=== PATIENT | female | born 1955 | race Caucasian/White ===

== ENCOUNTER → 2018-01-14 | Outpatient (CLI) | payer MEDICARE ==
[~2018-01-14] MED LIST: AMLO2.5T PO; ASCO10007 PO; CHOL100018 PO; CYAN1TAB44 PO; ESTR-28 PO; ETOD400T3 PO; FERR140T PO; LANS30CA55 PO; LEVO137T2 PO; LORA-705 PO; MOME17N NASAL; NORT25CA3 PO; OXYB5TAB10 PO; PRAV20TA4 PO; TIZA4CAP8 PO; VIT1CAPS21 PO; VITA400C70 PO
== END | disposition home or self-care (01) ==
LOC: RAH 08:32
PROVIDERS: ATTEND Obstetrics & Gynecology
DX: Z12.31 Encounter for screening mammogram for malignant neoplasm of breast (principal)
CPT/HCPCS: 77067

== ENCOUNTER → 2018-08-02 | Outpatient (CLI) | payer MEDICARE ==
[~2018-08-02] MED LIST changes: -AMLO2.5T PO; +AMLO2.5T4 PO; -FERR140T PO; +FERR140T2 PO
== END | disposition home or self-care (01) ==
LOC: RAH 09:24
PROVIDERS: ATTEND Obstetrics & Gynecology
DX: N63.20 Unspecified lump in the left breast, unspecified quadrant (principal)
CPT/HCPCS: 76641; 77065

== ENCOUNTER → 2019-01-19 | Outpatient (CLI) | payer MEDICARE ==
[~2019-01-19] MED LIST changes: +OCUVITE SOFTGE1 EACH PO; -VIT1CAPS21 PO
== END | disposition home or self-care (01) ==
LOC: RAH 09:37
PROVIDERS: ATTEND Obstetrics & Gynecology
DX: N63.21 Unspecified lump in the left breast, upper outer quadrant (principal)
CPT/HCPCS: 76641; 77066

== ENCOUNTER → 2020-07-01 | Outpatient (CLI) | payer MEDICARE ==
[~2020-07-01] MED LIST changes: +ASCO100031 PO; -ASCO10007 PO; +LORA-699 PO; -LORA-705 PO; -OXYB5TAB10 PO; +OXYB5TAB15 PO; +VITA-164 PO; -VITA400C70 PO
== END | disposition home or self-care (01) ==
LOC: RAH 13:43
PROVIDERS: ATTEND Obstetrics & Gynecology
DX: Z12.31 Encounter for screening mammogram for malignant neoplasm of breast (principal)
CPT/HCPCS: 77067

== ENCOUNTER 2022-07-22 08:18 | Day surgery (SDC) | payer OTHER, MEDICARE ==
[2022-07-17 14:21] LABS: BASOPHILS % (AUTO) 0.4 % (0.0-5.0); EOSINOPHILS % (AUTO) 2.6 % (0.0-8.0); HEMATOCRIT 36.4 % (36-48); LYMPHOCYTES % (AUTO) 21.2 % (21.0-51.0); MEAN CORPUSCULAR HEMOGLOBIN 27.7 pg (27.0-33.0); MEAN CORPUSCULAR VOLUME 84.1 fL (79-99); MONOCYTES % (AUTO) 8.1 % (3.0-13.0); NEUTROPHILS % (AUTO) 67.3 % (40.0-77.0); PLATELET COUNT (AUTO) 314 K/uL (130-400); RED BLOOD CELL COUNT(AUTO) 4.33 MIL/uL (4.00-5.50); RED CELL DISTRIBUTION WIDTH 13.5 % (11.0-15.5); WHITE BLOOD COUNT (AUTO) 9.1 K/uL (4.8-10.8)
[2022-07-17 14:25] LABS: APPEARANCE,URINE CLEAR (CLEAR); BILIRUBIN,URINE NEGATIVE (NEGATIVE); COLOR,URINE COLORLESS (YELLOW); GLUCOSE, URINE (UA) NEGATIVE (NEGATIVE); KETONES,URINE NEGATIVE (NEGATIVE); LEUKOCYTE ESTERASE ,URINE NEGATIVE Leu/uL (NEGATIVE); NITRATE,URINE NEGATIVE (NEGATIVE); PROTEIN,URINE NEGATIVE (NEGATIVE); UROBILINOGEN,URINE 0.2 mg/dL (0.2-1.0)
[2022-07-17 14:32] LABS: POTASSIUM 4.4 mmol/L (3.5-5.1)
[2022-07-17 14:34] LABS: RBC,URINE 0-1 /HPF (0-1); SQUAMOUS EPITHELIAL CELL,UR RARE /HPF (0-2)
[2022-07-17 14:37] LABS: INR 0.96 (0.85-1.15); PARTIAL THROMBOPLASTIN TIME 28.8 SEC (26.3-35.5); PROTHROMBIN TIME 10.4 SEC (9.6-11.6)
[2022-07-17 14:52] LABS: B-TYPE NATRIURETIC PEPTIDE 103 pg/mL (0-100)
[2022-07-21 11:37] VITALS: BP 122/64
[~2022-07-22] VITALS: Ht 162.6 cm; Wt 92.5 kg
[2022-07-22] VITALS (7 sets, daily range): BP systolic 143–163; BP diastolic 56–89
[~2022-07-22 08:18] MED LIST changes: +AEC81 PO; -AMLO2.5T4 PO; -ASCO100031 PO; +ASCO500T10 PO; +ATOR10 PO; +BIOT10004 PO; +CELE-84 PO; -CHOL100018 PO; +CLOP75TA32 PO; -CYAN1TAB44 PO; -ESTR-28 PO; -ETOD400T3 PO; -FERR140T2 PO; +FLUT16H NASAL; -LANS30CA55 PO; -LEVO137T2 PO; +LEVO150T11 PO; +LOSA50TA64 PO; +MAGN100T5 PO; +METO-391 PO; -MOME17N NASAL; +MV-M1TAB45 PO; +NITR0.4T50 SL; +NORT50CA PO; +OMEG-89 PO; -OXYB5TAB15 PO; -PRAV20TA4 PO; +UBID100C10 PO; -VITA-164 PO; +VITA-395 PO; +ZINC220T4 PO
[2022-07-22] MEDS ORDERED: 0.9%NACL 1000ML 1,000 ML IV ONE (08:55)
[2022-07-22] MEDS ORDERED: LIDOCAINE HCL 1% 20 ML VIAL ONE (15:02)
[2022-07-22] MEDS ORDERED: HEPARIN 10,000 UNIT/10ML (1,000 UNIT/ML) VIAL ONE (15:02)
[2022-07-22] MEDS ORDERED: IOHEXOL-350 50ML VIAL IV ONE (15:02)
[2022-07-22] MEDS ORDERED: NITROGLYCERIN 50MG VIAL ONE (15:02)
[2022-07-22] MEDS ORDERED: IOHEXOL 350 MG/ML 100ML INFUS..BTL IV ONE (15:02)
[2022-07-22] MEDS ORDERED: FENTANYL CITRATE PF 50 MCG/1 ML 2ML VIAL ONE (15:03)
[2022-07-22] MEDS ORDERED: MIDAZOLAM HCL 1 MG/ML 2ML VIAL ONE (15:03)
[2022-07-22] MEDS ORDERED: 0.9%NACL 1000ML 1,000 ML IV SCH (17:00)
== END 2022-07-22 21:40 | disposition home or self-care (01) ==
LOC: DAH 08:18 → EDSTATUS 13:00 → DAH 21:40
PROVIDERS: ATTEND Internal Medicine Cardiovascular Disease
DX: I25.118 Atherosclerotic heart disease of native coronary artery with other forms of angina pectoris (principal); I27.20 Pulmonary hypertension, unspecified; I44.7 Left bundle-branch block, unspecified; T73.3XXA Exhaustion due to excessive exertion, initial encounter; I10 Essential (primary) hypertension; E78.5 Hyperlipidemia, unspecified; E03.9 Hypothyroidism, unspecified; M19.90 Unspecified osteoarthritis, unspecified site; Z79.01 Long term (current) use of anticoagulants; Z79.82 Long term (current) use of aspirin; Z79.899 Other long term (current) drug therapy; Z98.890 Other specified postprocedural states; Z79.890 Hormone replacement therapy; Z90.89 Acquired absence of other organs; Z82.49 Family history of ischemic heart disease and other diseases of the circulatory system; Z80.9 Family history of malignant neoplasm, unspecified; Z88.6 Allergy status to analgesic agent; Z88.8 Allergy status to other drugs, medicaments and biological substances; Z91.040 Latex allergy status; Y83.8 Other surgical procedures as the cause of abnormal reaction of the patient, or of later complication, without mention of misadventure at the time of the procedure
CPT/HCPCS: 80048; 83880; 85025; 85610; 85730; 81001; 36415; 71045; 93005; 93460; C1894 ×3; C1760; Q9965; J3010; J7030; J2250; J1644; J3490; Q9967 ×2; A4215; A4222; A4221; A4663; A4216; A4606; A4223 ×3; 99156; 99157

== ENCOUNTER → 2022-10-20 | Outpatient (CLI) | payer OTHER, MEDICARE | END | disposition home or self-care (01) | LOC: RAH 08:55 | PROVIDERS: ATTEND Obstetrics & Gynecology | DX: R92.0 Mammographic microcalcification found on diagnostic imaging of breast (principal); R92.2 Inconclusive mammogram | CPT/HCPCS: 77065 ==

== ENCOUNTER → 2023-07-20 | Outpatient (CLI) | payer OTHER, MEDICARE ==
[~2023-07-20] MED LIST changes: +CELE-125 PO; -CELE-84 PO
== END | disposition home or self-care (01) ==
LOC: RAH 13:51
PROVIDERS: ATTEND Internal Medicine Critical Care Medicine
DX: I51.7 Cardiomegaly (principal); M35.00 Sjogren syndrome, unspecified
CPT/HCPCS: 71250

== ENCOUNTER → 2023-08-30 | Outpatient (CLI) | payer OTHER, MEDICARE ==
[2023-08-30 12:17] LABS: POTASSIUM 4.4 mmol/L (3.5-5.1)
[2023-08-30 12:58] LABS: MAGNESIUM 1.9 mg/dL (1.80-2.40)
== END | disposition home or self-care (01) ==
LOC: LAB 08:30
PROVIDERS: ATTEND Internal Medicine Cardiovascular Disease
DX: I10 Essential (primary) hypertension (principal)
CPT/HCPCS: 36415; 80048; 83735

== ENCOUNTER → 2023-10-01 | Outpatient (CLI) | payer OTHER, MEDICARE | END | disposition home or self-care (01) | LOC: RAH 08:34 | PROVIDERS: ATTEND Obstetrics & Gynecology | DX: Z12.31 Encounter for screening mammogram for malignant neoplasm of breast (principal); R92.333 Mammographic heterogeneous density, bilateral breasts; N64.89 Other specified disorders of breast | CPT/HCPCS: 77067 ==

== ENCOUNTER → 2024-02-01 | Outpatient (CLI) | payer OTHER, MEDICARE ==
[2024-02-01 12:08] LABS: MAGNESIUM 1.8 mg/dL (1.80-2.40); POTASSIUM 4.3 mmol/L (3.5-5.1)
== END | disposition home or self-care (01) ==
LOC: LAB 08:05
PROVIDERS: ATTEND Internal Medicine Cardiovascular Disease
DX: I10 Essential (primary) hypertension (principal)
CPT/HCPCS: 36415; 80048; 83735

== ENCOUNTER → 2024-05-16 | Outpatient (CLI) | payer OTHER, MEDICARE | END | disposition home or self-care (01) | LOC: LAB 09:33 | PROVIDERS: ATTEND Internal Medicine Cardiovascular Disease | DX: I10 Essential (primary) hypertension (principal); I34.0 Nonrheumatic mitral (valve) insufficiency | CPT/HCPCS: 36415; 83880 ==

== ENCOUNTER → 2025-04-17 | Outpatient (CLI) | payer OTHER, MEDICAID ==
--- NOTE | 2025-04-19 10:56 | HMCIMG ---
CLINICAL INDICATION: Age-related osteoporosis without current pathological fracture COMPARISON: None available TECHNIQUE: Bone densitometry is performed of the lumbar spine and left hip. FINDINGS: Total BMD of lumbar spine is 1.139 g/cm2 with a T-score of 0.8 and Z-score is 3.0. Total BMD of left hip is 0.86 g/cm2 with a T-score of -0.5 and Z-score is 1.1. FRAX SCORE: The 10 year fracture risk for a major osteoporotic fracture and hip fracture 17% IMPRESSION: 1. Osteopenia of the left hip 2. Normal lumbar spine. 3. I would recommend follow-up in 13 months. World Health Organization criteria for BMD interpretation classify patients as Normal (T-score at or above -1.0), Osteopenic (T-score between -1.0 and -2.5), or Osteoporotic (T-score at or below -2.5). FRAX SCORE: A. All treatment decisions require clinical judgment and consideration of individual patient factors, including patient preferences, comorbidities, previous drug use, risk factors not captured in the FRAX model (e.g., frailty, falls, vitamin D deficiency, increased bone turnover, interval significant decline in bone density) and possible [id number]-estimation of fracture risk by FRAX. B. In addition, the NOF Guide recommends that FDA-approved medical therapies be considered in postmenopausal women and men age greater than or equal to 50 years with a: i. Hip or vertebral (clinical or morphometric) fracture. ii. T-score of less than or equal to -2.5 at the spine or hip. iii. Ten-year fracture probability by FRAX of greater than or equal to 3% for hip fracture of greater than or equal to 20% for major osteoporotic fracture.
== END | disposition home or self-care (01) ==
LOC: RAH 08:02
PROVIDERS: ATTEND Nurse Practitioner Family
DX: M81.0 Age-related osteoporosis without current pathological fracture (principal); M85.88 Other specified disorders of bone density and structure, other site
CPT/HCPCS: 77080

== ENCOUNTER 2025-06-14 06:03 | Day surgery (SDC) | payer OTHER, MEDICAID ==
[2025-06-12 09:17] LABS: IMMATURE GRANULOCYTE ABSOLUTE 0.04 K/uL (0-1); NUCLEATED RED BLOOD CELLS 0.0 % (0.0-0.19); PLATELET COUNT (AUTO) 277 K/uL (130-400); RED BLOOD CELL COUNT(AUTO) 4.36 MIL/uL (4.00-5.50); RED CELL DISTRIBUTION WIDTH 14.2 % (11.0-15.5); WHITE BLOOD COUNT (AUTO) 7.9 K/uL (4.8-10.8)
[2025-06-12 09:20] VITALS: BP 149/70; PULSE 78; RESP 13; TEMP 98.1
[2025-06-12 09:23] LABS: CREATININE 0.9 mg/dL (0.5-1.0); GLOMERULAR FILTR. RATE CALC 69.0 mL/min (>90); GLUCOSE,RANDOM 98.0 mg/dL (70-105); SODIUM SERUM 139.0 mmol/L (136-145); UREA NITROGEN, BLOOD 26.0 mg/dL (7-18)
[2025-06-12 09:30] LABS: INR 1.04 (0.85-1.15)
--- NOTE | 2025-06-12 10:26 | EKG ---
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 : 1955 Requested By: KARRIE VINCENT Order Number: [id number] Reading MD: Suzie Jimenez Measurements Intervals [place] Rate: 65 P: 0 OK: 0 QRS: 2 QRSD: 162 T: -17 QT: 390 QTc: 427 Interpretive Statements Atrial flutter Ventricular bigeminy Nonspecific intraventricular conduction delay ST elevation secondary to IVCD Compared to ECG 07/17/2022 14:09:26 Ventricular premature complex(es) now present Intraventricular conduction delay now present ST (T wave) deviation now present Sinus rhythm no longer present First degree AV block no longer present Left bundle-branch block no longer present Electronically Signed On 06-12-2025 10:31:16 COMMUTATOR INSPECTOR by Suzie Jimenez Please click the below link to view image of tracing.
[~2025-06-14] VITALS: Ht 162.6 cm; Wt 90.9 kg
[2025-06-14] VITALS (10 sets, daily range): BP systolic 113–154; BP diastolic 58–69; PULSE 41–79; RESP 13–19; TEMP 97.4–98
[~2025-06-14 06:03] MED LIST changes: +ACET-2743 PO; +ACYC15OI7 TP; -AEC81 PO; +ALBU18HF7 IH; +APIX5TAB PO; -CLOP75TA32 PO; +ESOM20CA31 PO; -LOSA50TA64 PO; -MAGN100T5 PO; -METO-391 PO; +MONT-39 PO; -MV-M1TAB45 PO; -NITR0.4T50 SL; -NORT50CA PO; -OCUVITE SOFTGE1 EACH PO; +PREDAOS OD; -UBID100C10 PO; +UBID100C51 PO; +[UNRECOGNIZED DRUG - OTHER] PO
[2025-06-14] MEDS: 0.9%NACL 1000ML 1,000 ML IV ONE (07:10)
[2025-06-14] MEDS ORDERED: LIDOCAINE HCL 400MG/20ML VIAL ONE (07:15)
[2025-06-14] MEDS ORDERED: SODIUM BICARB 50MEQ 50ML VIAL 50 ML ONE (07:16)
[2025-06-14] MEDS ORDERED: HEParin-NS 1,000 UNIT/500 ML 1,000 ML IV ONE (07:17)
[2025-06-14] MEDS ORDERED: MIDAZOLAM HCL 1 MG/ML 2ML VIAL ONE ×2 (07:28→08:40)
--- NOTE | 2025-06-14 10:27 | EKG ---
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 : 1955 Requested By: KARRIE VINCENT Order Number: [id number] Reading MD: Suzie Jimenez Measurements Intervals [place] Rate: 71 P: 62 MN: 237 QRS: 28 QRSD: 96 T: 30 QT: 414 QTc: 451 Interpretive Statements Sinus rhythm Prolonged MN interval Probable left atrial enlargement Compared to ECG 06/12/2025 08:44:38 First degree AV block now present Atrial flutter no longer present Ventricular premature complex(es) no longer present Intraventricular conduction delay no longer present ST (T wave) deviation no longer present Electronically Signed On 06-14-2025 21:13:40 RACE RELATIONS PROFESSOR by Suzie Jimenez Please click the below link to view image of tracing.
== END 2025-06-14 13:28 | disposition home or self-care (01) ==
LOC: DAH 06:03
PROVIDERS: ATTEND Internal Medicine Cardiovascular Disease
DX: I48.3 Typical atrial flutter (principal); I44.0 Atrioventricular block, first degree; I49.3 Ventricular premature depolarization; I45.4 Nonspecific intraventricular block; G62.9 Polyneuropathy, unspecified; E03.9 Hypothyroidism, unspecified; M19.90 Unspecified osteoarthritis, unspecified site; Z88.5 Allergy status to narcotic agent; Z90.89 Acquired absence of other organs; Z88.8 Allergy status to other drugs, medicaments and biological substances; Z79.01 Long term (current) use of anticoagulants; Z91.040 Latex allergy status; Z79.899 Other long term (current) drug therapy
CPT/HCPCS: 80048; 85025; 85610; 85730; 36415; 93005 ×2; 93653; 99156; 99157 ×6; C1894 ×2; C1732 ×2; C1893; A4649 ×2; C1760 ×2; J3010 ×2; J3490 ×2; J7030; J1644 ×2; J2250; A4215; A4222; A4221; A4663; A4216; A4606; A4223 ×3; A4554; J0690; J1200